=== PATIENT | female | born 1990 | race African-American/Black ===

== ENCOUNTER 2022-03-24 16:32 | Emergency (ER) | payer SELFPAY ==
[2022-03-24] MEDS ORDERED: Ondansetron ODT 4 MG TAB ONE (16:51)
[2022-03-24] MEDS ORDERED: Dicyclomine 20 MG/2 ML VIAL ONE (17:19)
== END 2022-03-24 17:22 | disposition home or self-care (01) ==
LOC: CSHERS 16:32
DX: R11.2 Nausea with vomiting, unspecified (principal); F41.9 Anxiety disorder, unspecified; F17.210 Nicotine dependence, cigarettes, uncomplicated
CPT/HCPCS: 96372; 99283; Q0162

== ENCOUNTER 2024-08-07 12:44 | Emergency (ER) | payer SELFPAY ==
[2024-08-07] MEDS ORDERED: Ketorolac Tromethamine 30 MG (1 mL) VIAL ONE (13:53)
[2024-08-07 14:17] LABS: BHCG - Serum Negative (NEGATIVE); Pregs Control Background? CLEAR/WHITE (CLR/WHITE); Pregs Control Bar Appear? YES (CONTROL BAR)
[2024-08-07 14:18] LABS: ALT (SGPT) 22 U/L (8-55); AST (SGOT) 21 U/L (5-34); Albumin 4.5 g/dL (3.5-5.0); Alkaline Phosphatase 62 U/L (40-110); Anion Gap 17 mmol/L (10-20); BUN (Urea Nitrogen) 12 mg/dL (7.0-18.7); Bilirubin, Total 0.7 mg/dL (0.2-1.2); Calc. Creatinine Clearance 0 mL/min (70-130); Calcium 9.8 mg/dL (7.8-10.44); Carbon Dioxide 19 mmol/L (22-29); Chloride 107 mmol/L (98-107); Estimated GFR 88; Globulin 3.1 g/dL (2.4-3.5); Glucose 112 mg/dL (70-105); Lipase 13 U/L (8-78); Potassium 3.8 mmol/L (3.5-5.1); Protein, Total 7.6 g/dL (6.0-8.3); Sodium 139 mmol/L (136-145)
[2024-08-07 14:21] LABS: Troponin I Less than 0.010 ng/mL (< 0.028)
[2024-08-07 14:23] LABS: #Basophils 0.03 10x3/uL (0.0-0.2); #Monocytes 0.62 10x3/uL (0.0-1.1); %Basophils 0.4 % (0.0-2.0); %Eosinophils 2.7 % (0.0-6.0); %Lymphocytes 41.2 % (18.0-47.0); %Monocytes 8.4 % (0.0-10.0); %Neutrophils 47.2 % (40.0-75.0); Hematocrit 35.4 % (34.9-44.5); Hemoglobin 11.9 g/dL (12.0-15.5); Mean Corpuscular HGB CONC 33.6 g/dL (32.0-36.0); Mean Corpuscular Hemoglobin 29.2 pg (27.0-33.0); Mean Platelet Volume 9.6 fL (7.4-10.4); Platelet Count 401 10x3/uL (150-450); RBC Distribution Width 14.2 % (11.5-14.5); Red Blood Cell (RBC) Count 4.07 10x6/uL (3.90-5.03); White Blood Cell (WBC) Count 7.4 10x3/uL (3.5-10.5)
[2024-08-07 15:34] LABS: Troponin I Less than 0.010 ng/mL (< 0.028)
== END 2024-08-07 16:09 | disposition home or self-care (01) ==
LOC: CSHERS 12:44
DX: R07.89 Other chest pain (principal); F17.210 Nicotine dependence, cigarettes, uncomplicated
CPT/HCPCS: 36415; 71045; 80053; 83690; 84484; 84703; 85025; 85379; 93005; 96374; J1885

== ENCOUNTER 2025-04-27 11:24 | Emergency (ER) | payer SELFPAY ==
[2025-04-27 12:49] LABS: Glucose, Urine (Dipstick) Normal (Negative); Leukocyte 25 (Negative); Protein, Urine (Dipstick) 30 mg/dl (Neg-Trace); Specific Gravity, Urine 1.010 (1.005-1.030)
[2025-04-27 12:52] LABS: Pregnancy Test - Urine (BHCG) Negative (Negative); Pregu Control Background? CLEAR/WHITE (CLR/WHITE); Pregu Control Bar Appear? YES (CONTROL BAR)
[2025-04-27 13:30] LABS: Bacteria/HPF Rare-Few HPF (None Seen); CAUTI Indications for Culture Pelvic or flank pain; WBC/HPF 0-3 HPF (0-3)
[2025-04-27 13:37] LABS: Urine Culture Reflex No No
== END 2025-04-27 13:09 | disposition home or self-care (01) ==
LOC: CSHERS 11:24
DX: N39.0 Urinary tract infection, site not specified (principal); J06.9 Acute upper respiratory infection, unspecified; F17.210 Nicotine dependence, cigarettes, uncomplicated
CPT/HCPCS: 81001; 81025; 87426; 99283